=== PATIENT | female | born 1995 | race Hispanic/Latino ===

== ENCOUNTER 2020-08-10 15:06 | Inpatient (IN) | payer MEDICAID ==
--- NOTE | 2020-08-10 16:22 | History and Physical Report ---
History of Present Illness Date of examination: 08/10/20 History of present illness: Patient presented to labor and delivery including complaints of contractions every 5 minutes patient states the contractions been going on since approximately 2 AM this morning. Initial exam by triage nurse revealed the patient cervix was 4 cm dilated with contractions every 2 to 3 minutes. Patient's course was complicated by positive group B Streptococcus Menstrual History Regularity: irregular Duration: 3-7 LMP character: normal test type: urine test BC at conception: none Planned ? no EDC Calculations EDC Confirmation: 08/07/2020 Past History : 1 Term Births: 0 Premature Births: 0 Living Children: 0 Para: 0 Mult. Births: 0 Prev : 0 Aborta: 0 Elect. Ab: 0 Spont. Ab: 0 Ectopics: 0 Past Medical History: Negative Past Medical History Past Surgical History: negative Past Medical History Anesthesia Complications: negative Anemia: negative Autoimmune Disorder: negative Bleeding Disorder: negative Blood Transfusions: negative Breast Disease: negative Diabetes: negative Heart Disease: negative Hypertension: negative Hepatitis/Liver Disease: negative Kidney Disease/UTI: negative Neurologic/Epilepsy/Migraines: negative Phlebitis/Varicosities: negative Psychiatric: negative Pulmonary Disease/Asthma: negative Thyroid Disease: negative Hospitalizations: negative Surgery (Non-orthopedic dentist): negative Abnormal PAP: negative DONALD Exposure: negative Infertility: negative Uterine Anomaly: negative Uterine Surgery (not C/S): negative Other Gynecologic Problems: negative Infection History Hx of STD: none HIV Risk Eval: no Hepatitis B Risk Eval: low risk Personal hx. of genital herpes: no Partner hx. of genital herpes: no Rash, Viral, or Febrile illness since last LMP? no Varicella/Chicken Pox Status: No TB Risk: no Genetic History Congenital Heart Defect: Mom: no Dad: unknown Rolando Disease: Mom: no Dad: unknown Thalassemia Mom: no Dad: unknown Neural Tube Defect Mom: no Dad: unknown Down's Syndrome Mom: no Dad: unknown Chet-Sachs Mom: no Dad: unknown Sickle Cell Disease/Trait Mom: no Dad: unknown Hemophilia Mom: no Dad: unknown Muscular Dystrophy Mom: no Dad: unknown Cystic Fibrosis Mom: no Dad: unknown Shirley Chorea Mom: no Dad: unknown Mental Retardation Mom: no Dad: unknown Fragile X Mom: no Dad: unknown Other Genetic/Chromosomal Disorder Mom: no Dad: unknown Child w/other defect Mom: no Dad: unknown Enviromental Exposures Xray Exposure: no Medication, drug, or alcohol use since LMP: no Chemical/Other Exposure: no Exposure to Cat Liter: no Hx of Parvovirus (Fifth Disease): no Occupational Exposure to Children: none Current Allergies (reviewed today): No known allergies Laboratory Results Past History Past Medical History: other (See HPI) Past Surgical History: other (See HPI) COMMUNICATIONS PROJECT LEAD History: chlamydia, gonorrhea, other (See HPI) Family/Genetic History: other (See HPI) Social history: full code, other (See HPI) - Obstetrical History Expected Date of Delivery: 08/07/20 Actual Gestation: 40 Week(s) 4 Day(s) : 1 Para: 0 Hx # Term Pregnancies: 0 Number of Pregnancies: 0 Spontaneous Abortions: 0 Induced : 0 Number of Living Children: 0 Medications and Allergies Allergies Allergy/AdvReac Type Severity Reaction Status Date / Time No Known Allergies Allergy Unverified 08/10/20 16:38 - Vital Signs Vital signs: Vital Signs Pulse Pulse Ox 98 H 96 08/10/20 15:36 08/10/20 15:36 Temp Pulse Resp BP Pulse Ox 97.7 F 95 H 15 122/74 96 08/10/20 15:40 08/10/20 16:16 08/10/20 15:40 08/10/20 15:40 08/10/20 16:16 - Physical Exam Breasts: Positive: deferred Cardiovascular: Regular rate Abdomen: Positive: normal appearance Cervix: Positive: other (Per RN) Extremities: Positive: normal Results Result Diagrams: 08/10/20 16:00 All other labs normal. Assessment and Plan - Patient Problems (1) Active labor at term Current Visit: Yes Status: Acute Plan to address problem: Admit routine labor and delivery protocol possible augmentation if required. (2) Group B streptococcal carriage complicating Current Visit: Yes Status: Acute Plan to address problem: Antibiotic prophylaxis will be given.
[2020-08-10] MEDS ORDERED: PROMETHAZINE 25 MG TAB PO PRN (16:23)
[2020-08-10] MEDS ORDERED: BUTORPHANOL 2 MG/1 ML INJ IV PRN (16:23)
[2020-08-10] MEDS ORDERED: LIDOCAINE (2%) 20 MG/1 ML VIAL 20 ML MDV INFILTRATI ONE (16:23)
[2020-08-10] MEDS ORDERED: ePHEDrine SULFATE 50 MG/1 ML INJ IV PRN ×2 (16:23→20:22)
[2020-08-10] MEDS ORDERED: TERBUTALINE 1 MG/1 ML INJ SUB-Q PRN (16:23)
[2020-08-10 16:57] LABS: Hematocrit 32.4 % (30.3-42.9); Hemoglobin 11.2 gm/dl (10.1-14.3); Mean Corpuscular HGB Conc 35 % (30-34); Mean Corpuscular Volume 88 fl (79-97); Platelet Count 225 K/mm3 (140-440); Red Blood Count 3.69 M/mm3 (3.65-5.03); Red Cell Distribution Width 14.3 % (13.2-15.2)
[2020-08-10] MEDS ORDERED: OXYTOCIN DRIP 30 UNITS/500 ML BAG IV SCH ×2 (17:00→21:24)
[2020-08-10] MEDS ORDERED: AMPICILLIN/NS 2 GM/100 ML 2 GM/100 ML BAG IV ONE (17:00)
[2020-08-10] MEDS: LACTATED RINGERS 1,000 ML IV SCH ×2 (17:03→20:31)
--- NOTE | 2020-08-10 20:11 | Anesthesia Consultation ---
Anesthesia Consult and Med Hx Date of service: 08/10/20 - Airway Anesthetic Teeth Evaluation: Good ROM Head & Neck: Adequate Mental/Hyoid Distance: Adequate Mallampati Class: Class II Intubation Access Assessment: Probably Good - Pulmonary Exam CTA: Yes - Cardiac Exam Cardiac Exam: RRR - Pre-Operative Health Status ASA Pre-Surgery Classification: ASA2 Proposed Anesthetic Plan: Epidural - Pulmonary Hx Smoking: No Hx Asthma: No Hx Respiratory Symptoms: No SOB: No COPD: No Home Oxygen Therapy: No Hx Pneumonia: No Hx Sleep Apnea: No - Cardiovascular System Hx Hypertension: No Hx Coronary Artery Disease: No Hx Heart Attack/AMI: No Hx Angina: No Hx Percutaneous Transluminal Coronary Angioplasty (PTCA): No Hx Cardia Arrhythmia: No Hx Pacemaker: No Hx Internal Defibrillator: No Hx Valvular Heart Disease: No Hx Heart Murmur: No Hx Peripheral Vascular Disease: No - Central Nervous System Hx Neuromuscular Disorder: No Hx Seizures: No CVA: No Hx Back Pain: No Hx Psychiatric Problems: No - Gastrointestinal Hx Ulcer: No - Endocrine Hx Renal Disease: No Hx End Stage Renal Disease: No Hx Cirrhosis: No Hx Liver Disease: No Hx Insulin Dependent Diabetes: No Hx Non-Insulin Dependent Diabetes: No Hx Thyroid Disease: No Hx Hypothyroidism: No Hx Hyperthyroidism: No - Hematic Hx Anemia: No Hx Sickle Cell Disease: No - Other Systems Hx Alcohol Use: No Hx Substance Use: No Hx Cancer: No Hx Obesity: Yes
[2020-08-10] MEDS ORDERED: NALOXONE 2 MG/2 ML INJ IV PRN (20:22)
--- NOTE | 2020-08-10 20:22 | Progress Note ---
Labor Epidural - Labor Epidural Start Time: 19:33 Stop Time: 19:43 Performed by:: FRANNY DUMONT Procedure: Patient is requesting epidural for labor and pain. H&P, labs were reviewed. Patient IDed, H&P reviewed, all questions and concerns were answered, and consent was signed. Timeout was performed at bedside. Patient in sitting position. Sterile prep and drape was performed. 3ml of 1% lidocaine skin wheal at L[3]- L [4]. 18-gauge Tuohy epidural needle was advanced to loss of resistance with air technique 6cm. Negative CSF negative blood. Epidural catheter advanced to [10] centimeters. [negative] Aspiration [negative] test do se. Sterile dressing applied. Patient tolerated procedure.
[2020-08-10] MEDS: AMPICILLIN/NS 1 GM/50 ML 1 GM/50 ML BAG IV SCH (20:32)
[2020-08-10] MEDS ORDERED: fentaNYL-BUPIV 2 MCG/ML-0.125% 200 MCG/100 ML BAG EPIDURAL SCH (21:00)
--- NOTE | 2020-08-10 21:23 | Event Note ---
Date: 08/10/20 SUBJECTIVE: Patient is comfortable after placement of epidural OBJECTIVE: Vital signs stable heart tones 150s to 160s reactive Cervix 6-1/2 cm 80% effaced -3 station Artificial rupture membranes clear fluid intrauterine pressure catheter and scalp electrode placed ASSESSMENT: Patient with slight increase in cervical dilatation/just received a second dose of ampicillin PLAN: 1. We will start Pitocin augmentation. Watch tracing and monitor progress of labor.
[2020-08-10] MEDS ORDERED: ACETAMINOPHEN 325 MG TAB PO ONE (21:24)
[2020-08-11] MEDS: AMPICILLIN/NS 1 GM/50 ML 1 GM/50 ML BAG IV SCH (00:28)
--- NOTE | 2020-08-11 02:26 | Procedure Note ---
OB Delivery Note - Delivery Date of Delivery: 08/11/20 Surgeon: ANNIE FU Estimated blood loss: other (400cc) - Vaginal Delivery position: OA Delivery induction: none Delivery augmentation: rupture of membranes, pitocin Delivery monitor: external FHT, external uterine, internal FHT, internal uterine Route of delivery: vacuum extraction Indicators for instrumentation: maternal exhaustion Delivery placenta: spontaneous Delivery cord: nuchal cord Episiotomy: none Delivery laceration: 2nd degree, other (Left labia laceration) Delivery repair: vicryl Anesthesia: epidural Delivery comments: Outlet vacuum-assisted delivery of due to maternal exhaustion. bulb suction on the mother's perineum. Cord cut and clamped. Infant to mother's chest for skin to skin. . Spontaneous delivery of placenta, intact, 3 vessels noted. Perineum and vaginal inspected, second-degree midline laceration repaired with 3-0 Vicryl. Fundus firm, minimal bleeding noted. Infant left in stable condition in the care of RN. Sponge count correct. - Infant A at 1 minute: 8 at 5 minutes: 9 Gender: Female (8 pounds 3 ounces)
[2020-08-11] MEDS ORDERED: miSOPROStol 200 MCG TAB ONE (03:28)
--- NOTE | 2020-08-11 06:04 | Event Note ---
Date: 08/11/20 (report that pt almost passed out in toilet) Pt very tense with exam due to pain from labial repair. FF unable to express but a small amt of lochia. Will get Stat H&H. Explained concerns to pt. Stressed to not be OOB w/o assistance.
[2020-08-11 06:33] LABS: Hemoglobin 9.1 gm/dl (10.1-14.3)
[2020-08-11] MEDS ORDERED: diphenhydrAMINE 25 MG CAP PO PRN (09:30)
[2020-08-11] MEDS ORDERED: WITCH HAZEL/ GLYCERIN PAD TP PRN (09:30)
[2020-08-11] MEDS ORDERED: PROMETHAZINE 25 MG TAB PO PRN (09:30)
[2020-08-11] MEDS ORDERED: LANOLIN/ZINC/DIMETHICONE (LANSINOH) 7 GM TP PRN (09:30)
[2020-08-11] MEDS ORDERED: DOCUSATE SODIUM 100 MG CAP PO SCH (10:00)
[2020-08-11] MEDS: FERROUS SULFATE 325 MG TAB PO SCH ×2 (11:32→23:45)
[2020-08-11] MEDS: DOCUSATE SODIUM 100 MG CAP PO SCH ×2 (11:32→23:45)
[2020-08-11] MEDS: IBUPROFEN 600 MG TAB PO SCH ×3 (11:33→23:44)
[2020-08-11] MEDS: PRENATAL VIT27-FE FUMARATE-FOLIC ACID VIT TAB PO SCH (11:36)
--- NOTE | 2020-08-11 11:59 | Post Anesthesia Evaluation ---
- Post Anesthesia Evaluation Patient Participated: Yes Airway Patent: Yes Stable Respiratory Function: Yes Nausea/Vomiting: No Temp > 96.8F: Yes Pain Manageable: Yes Adequeate Hydration: Yes Anesthesia Complications: No Block Receding Appropriately: Yes Patient on Ventilator: No
[2020-08-11 15:56] LABS: Hematocrit 25.1 % (30.3-42.9); Hemoglobin 8.6 gm/dl (10.1-14.3)
--- NOTE | 2020-08-11 17:58 | Progress Note ---
Assessment and Plan A: 25 y.o. s/p @ term. P: Continue with care. Anticipate discharge home in the AM. Subjective - Subjective Date of service: 08/11/20 Patient reports: appetite normal, voiding normally, pain well controlled, flatus, ambulating normally : doing well Objective - Vital Signs Latest vital signs: Vital Signs Temp Pulse Resp BP BP Pulse Ox 08/11/20 16:09 97.8 F 81 20 104/62 96 08/11/20 12:02 97.9 F 81 20 103/53 95 08/11/20 07:35 98.1 F 83 18 104/62 97 08/11/20 07:14 90 113/62 96 08/11/20 07:11 91 H 117/67 08/11/20 07:09 90 95 08/11/20 07:04 86 96 08/11/20 06:59 92 H 115/65 96 08/11/20 06:54 96 H 95 08/11/20 06:49 98 H 95 08/11/20 06:44 93 H 118/67 95 08/11/20 06:39 96 H 95 08/11/20 06:34 89 95 08/11/20 06:29 92 H 116/68 95 08/11/20 06:24 105 H 96 08/11/20 06:19 99 H 96 08/11/20 06:15 98.3 F 08/11/20 06:14 87 99/54 95 08/11/20 06:09 89 97 08/11/20 06:04 101 H 98 08/11/20 05:59 104 H 103/60 89 08/11/20 05:54 93 H 97 08/11/20 05:49 99 H 96 08/11/20 05:44 99 H 102/59 96 08/11/20 05:39 95 H 96 08/11/20 05:34 101 H 96 08/11/20 05:29 87 104/62 96 08/11/20 05:24 89 96 08/11/20 05:19 85 96 08/11/20 05:14 88 93/54 96 08/11/20 05:10 87 97/52 08/11/20 05:09 117 H 97 08/11/20 04:44 103 H 131/72 08/11/20 04:29 102/64 08/11/20 04:14 120 H 110/70 08/11/20 03:59 109 H 109/68 08/11/20 03:44 100 H 114/65 08/11/20 03:29 80 114/64 08/11/20 03:14 93 H 112/68 08/11/20 02:59 101 H 117/71 08/11/20 02:44 84 115/64 08/11/20 02:29 130 H 111/48 08/11/20 02:15 99.4 F 08/11/20 02:14 99 H 116/56 08/11/20 01:59 84 121/70 08/11/20 01:35 98.6 F 08/11/20 01:29 91 H 132/70 08/11/20 00:59 100 H 133/79 08/11/20 00:52 100 H 99 08/11/20 00:47 102 H 97 08/11/20 00:44 99 H 135/84 08/11/20 00:42 81 98 08/11/20 00:37 93 H 99 08/11/20 00:32 75 99 08/11/20 00:30 78 122/79 08/11/20 00:27 75 97 08/11/20 00:22 76 98 08/11/20 00:17 72 98 08/11/20 00:15 88 128/78 08/11/20 00:12 73 97 08/11/20 00:07 74 97 08/11/20 00:02 76 97 08/11/20 00:01 71 108/59 08/10/20 23:57 67 97 08/10/20 23:52 66 96 08/10/20 23:47 66 97 08/10/20 23:44 65 101/58 08/10/20 23:42 66 95 08/10/20 23:37 67 95 08/10/20 23:35 98.4 F 08/10/20 23:32 66 97 08/10/20 23:29 66 96/53 08/10/20 23:27 64 96 08/10/20 23:22 82 97 08/10/20 23:17 64 99 08/10/20 23:15 67 104/59 08/10/20 23:12 69 98 08/10/20 23:07 66 99 08/10/20 23:02 66 98 08/10/20 22:59 65 98/56 08/10/20 22:57 65 98 08/10/20 22:52 69 98 08/10/20 22:47 65 99 08/10/20 22:44 61 102/55 08/10/20 22:42 68 99 08/10/20 22:37 61 99 08/10/20 22:32 62 99 08/10/20 22:29 61 108/62 08/10/20 22:27 63 99 08/10/20 22:22 63 98 08/10/20 22:17 63 99 08/10/20 22:15 63 112/63 08/10/20 22:12 64 98 08/10/20 22:07 67 98 08/10/20 22:02 65 96 08/10/20 21:59 67 108/62 08/10/20 21:57 75 96 08/10/20 21:52 65 96 08/10/20 21:51 76 106/57 08/10/20 21:47 73 95 08/10/20 21:43 18 08/10/20 21:42 73 94 08/10/20 21:37 69 96 08/10/20 21:35 98.5 F 08/10/20 21:32 82 96 08/10/20 21:30 69 110/64 08/10/20 21:27 80 95 08/10/20 21:22 81 94 08/10/20 21:17 81 94 08/10/20 21:14 85 104/55 08/10/20 21:11 89 98 08/10/20 21:06 95 H 97 08/10/20 21:01 67 96 08/10/20 20:59 97/55 08/10/20 20:56 77 94 08/10/20 20:51 77 95 08/10/20 20:50 76 94 08/10/20 20:46 79 95 08/10/20 20:44 74 101/59 93 08/10/20 20:41 70 95 08/10/20 20:36 82 97 08/10/20 20:31 69 97 08/10/20 20:29 79 107/57 08/10/20 20:26 81 96 08/10/20 20:21 70 97 08/10/20 20:16 75 96 08/10/20 20:14 69 111/60 08/10/20 20:12 77 94 08/10/20 20:11 82 95 08/10/20 20:07 95 H 89 08/10/20 20:06 82 96 08/10/20 20:01 71 114/56 97 08/10/20 19:58 107 H 89 08/10/20 19:57 78 114/56 08/10/20 19:56 84 98 08/10/20 19:55 74 118/56 08/10/20 19:53 86 117/56 08/10/20 19:51 84 115/58 97 08/10/20 19:49 95 H 117/61 88 08/10/20 19:47 83 114/60 08/10/20 19:46 81 98 08/10/20 19:45 80 122/63 08/10/20 19:43 71 126/68 08/10/20 19:41 80 122/67 98 08/10/20 19:39 86 120/70 08/10/20 19:37 86 119/71 08/10/20 19:36 88 99 08/10/20 19:35 92 H 115/73 08/10/20 19:33 78 111/62 08/10/20 19:31 85 99 08/10/20 18:56 71 123/73 08/10/20 18:41 71 119/73 08/10/20 18:21 81 96 08/10/20 18:16 78 97 08/10/20 18:11 75 97 08/10/20 18:06 80 97 08/10/20 18:01 72 97 Intake and Output 08/11/20 08/11/20 08/11/20 06:59 14:59 22:59 Intake Total 240 Output Total 600 600 Balance -600 -360 Intake: Oral 240 Output: Urine 600 600 Indwelling Catheter 600 600 Other: Total, Intake Amount 120 Total, Output Amount 300 600 # Voids Indwelling Catheter 1 Void 1 Estimated Blood Loss 400 - Exam Narrative Exam: Pt is doing well at this time. Has had no episodes of fainting or feeling faint since this AM. She has been ambulating without difficulty. She denies feeling dizzy, chest pain, and shortness of breath. We discussed that if any of these symptoms occur to let the RN know immediately. Pt verbalized understanding. Breasts: Present: deferred Cardiovascular: Present: Regular rate Lungs: Present: Normal air movement Abdomen: Present: normal appearance, soft Uterus: Present: normal, firm Extremities: Present: normal - Labs Labs: Abnormal lab results 08/11/20 08/11/20 Range/Units 06:07 15:18 Hgb 9.1 L 8.6 L (10.1-14.3) gm/dl Hct 27.0 L 25.1 L (30.3-42.9) %
[2020-08-11] MEDS ORDERED: MAGNESIUM HYDROXIDE (MOM) ORAL LIQD UDC PO PRN (22:00)
[2020-08-12] MEDS: IBUPROFEN 600 MG TAB PO SCH (05:33)
[2020-08-12] MEDS ORDERED: DIPHtheria,PERTUSSIS(ACELL),TETANUS VACCINE/PF 0.5 ML VIAL IM ONE (06:00)
--- NOTE | 2020-08-12 08:52 | Discharge Summary ---
Providers - Providers Date of Admission: 08/10/20 16:23 Date of discharge: 08/12/20 (pt desires d/c home today) Attending physician: ANNIE FU 08/11/20 08:56 Consult to Station Tender [CONS] Routine Reason For Exam: assistance with , SNS Primary care physician: ANNIE FU Hospitalization Reason for admission: Labor Condition: Good Pertinent studies: post delivery H&H 8.6/25.1, asymptomatic anemia d/t acute blood loss Procedures: Hospital course: uncomplicated and course Disposition: DC-01 TO HOME OR SELFCARE - Discharge Diagnoses (1) (normal spontaneous vaginal delivery) Status: Acute Core Measure Documentation - Palliative Care Palliative Care/ Comfort Measures: Not Applicable - Core Measures Any of the following diagnoses?: none Exam - Constitutional Vitals: Temp Pulse Resp BP Pulse Ox 97.4 F L 72 18 106/61 99 08/12/20 08:24 08/12/20 08:24 08/12/20 08:24 08/12/20 08:24 08/12/20 08:24 General appearance: Present: no acute distress, well-nourished - EENT Eyes: Present: PERRL ENT: hearing intact, clear oral mucosa - Neck Neck: Present: supple, normal ROM - Respiratory Respiratory effort: normal Respiratory: bilateral: CTA - Cardiovascular Heart Sounds: Present: S1 & S2. Absent: rub, click - Extremities Extremities: No edema - Abdominal General gastrointestinal: Present: soft, non-tender, non-distended, normal bowel sounds Female genitourinary: Present: normal - Integumentary Integumentary: Present: clear, warm, dry - Musculoskeletal Musculoskeletal: gait normal, strength equal bilaterally - Psychiatric Psychiatric: appropriate mood/affect, intact judgment & insight - Neurologic Neurologic: CNII-XII intact, moves all extremities - Additional findings Additional findings: VSSAF, lochia scant, fundus firm, bottle feeding Plan Activity: no restrictions Diet: regular Care Plan Goals: [] Smoking cessation referral if applicable(refer to patient education folder for contact #) [] Refer to [facility] Booklet Call your doctor immediately for: * Fever > 100.5 * Heavy vaginal bleeding ( >1 pad per hour) * Severe persistent headache * Shortness of breath * Reddened, hot, painful area to leg or breast * Drainage or odor from incision. * Follow up with: ANNIE FU MD [Primary Care Provider] - 09/09/20 (Congratulations! Please call [phone] to schedule your visit in 4 weeks. Call for any questions or concerns.) Forms: [facility] Discharge Summary Prescriptions: Ferrous Sulfate [Feosol 325 MG tab] 325 mg PO BID #60 tablet Ibuprofen [Motrin 800 MG tab] 800 mg PO Q8HR PRN #30 tablet PRN Reason: Pain
[2020-08-12] MEDS: PRENATAL VIT27-FE FUMARATE-FOLIC ACID VIT TAB PO SCH (09:14)
[2020-08-12] MEDS: DOCUSATE SODIUM 100 MG CAP PO SCH (09:14)
[2020-08-12] MEDS: FERROUS SULFATE 325 MG TAB PO SCH (09:14)
[2020-08-12 15:25] VITALS: BP 98/54
== END 2020-08-12 13:25 | disposition home or self-care (01) | DRG 775 ==
LOC: TRG 15:06 → APU 15:11 → TRG 16:23 → APU 16:23 → LD 18:41 → OB 08-11 08:34
PROVIDERS: ADMIT Obstetrics & Gynecology; ATTEND Obstetrics & Gynecology
PROC: 3E0R3BZ Introduction of Anesthetic Agent into Spinal Canal, Percutaneous Approach (ICD-10-PCS; 2020-08-10)
PROC: 00HU33Z Insertion of Infusion Device into Spinal Canal, Percutaneous Approach (ICD-10-PCS; 2020-08-10)
PROC: 10D07Z6 Extraction of Products of Conception, Vacuum, Via Natural or Artificial Opening (ICD-10-PCS; principal; 2020-08-11)
PROC: 0KQM0ZZ Repair Perineum Muscle, Open Approach (ICD-10-PCS; 2020-08-11)
DX: O99.824 Streptococcus B carrier state complicating childbirth (principal); O75.81 Maternal exhaustion complicating labor and delivery; Z3A.40 40 weeks gestation of pregnancy; Z37.0 Single live birth; O70.1 Second degree perineal laceration during delivery; Z20.822 Contact with and (suspected) exposure to COVID-19; O90.81 Anemia of the puerperium; D62 Acute posthemorrhagic anemia
CPT/HCPCS: 36415; 59025; 85014; 85018; 85027; 86850; 86900; 86901; 90471; 90715; G0378; J0290; J2590; J7120; U0003